=== PATIENT | female | born 1965 | race Caucasian/White ===

== ENCOUNTER 2016-06-12 10:10 | Emergency (ER) | payer OTHER ==
[~2016-06-12] VITALS: Ht 172.7 cm; Wt 79.5 kg
[~2016-06-12 10:10] MED LIST: CALC1TAB3; Iron; PAM10; SYN.112T
[2016-06-12 10:26] VITALS: BP 156/86; PULSE 74; RESP 18; O2SAT 97
--- NOTE | 2016-06-12 10:46 | ED.REPORT ---
HPI-Back Pain 40 and Over Date of Service Jun 12, 2016 ED Provider: Maria Eugenia Patricia MD Pt is a 50 y.o. female who presents to the ED c/o left hip onset 4 days ago. She states it radiates to her left-sided back, neck, and left lower extremity. Associated muscle spasms. 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 She claims that she has taken 600-800 mg doses of ibuprofen without relief. Upon examination pt states she is unable to get in the gurney as lifting her legs causes her pain. Nursing Notes Stated Complaint: HIP AND LEG PAIN Chief Complaint: Extremity Trauma Nursing Notes Reviewed: Yes Allergies: Coded Allergies: Quinolones (Verified Allergy, Intermediate, lips blister, 01/06/09) Uncoded Allergies: SULFA (Allergy, Intermediate, hives, 01/06/09) Scheduled Dexamethasone (Dexamethasone) 4 Mg Tablet 10 MG PO DAILY 10mg daily for 3 days Scheduled PRN Diazepam (Diazepam) 5 Mg Tablet 5 MG PO TID PRN PRN For Spasm oxyCODONE-Acetaminophen 5-325 mg (oxyCODONE-Acetaminophen 5-325 mg) 1 Each Tablet 1-2 TAB PO Q6H PRN PRN For Pain Miscellaneous Medications ([Iron]) Calcium Carbonate/Vitamin D3 (Caltrate 600 W-D Tablet) 1 Tab Tablet Levothyroxine Inactive Drug Do Not Use (Synthroid-Expunged Drug, Do Not Renew!) 112 Mcg Tablet Nortriptyline-Expunged Drug, Do Not Renew! (Nortriptyline-Expunged Drug, Do Not Renew!) 10 Mg Capsule General Time Seen by MD: 10:27 Chief Complaint Other (Hip pain, left) Hx Obtained From: Patient Arrived By: Walk-in Sudden in Onset?: Yes Onset Occurred: 4 days ago Caused by: Spontaneous/no mechanism Location: : Perispinal lumbar: Perispinal sacral Quality: Painful Severity: Current: Moderate Severity: Maximum: Severe Past Medical History Past Medical History Reports: Thyroid disease Past Surgical History Bunion surgery Ambulatory Status Independent Review of Systems Muscle spasms Musculoskeletal: Reports: Back pain, Extremity pain (Left lower extremity), Joint pain (Left hip), Neck pain Complete sys rev & neg: except as marked. Physical Exam Initial Vital Signs Vital Signs (First) Date Time Temp Pulse Resp B/P Pulse Ox O2 Delivery O2 Flow Rate FiO2 06/12/16 10:26 36.5 74 18 156/86 97 Initial VS: Reviewed Head / Eyes: Atraumatic, Normocephalic Extremities: Vascular intact, Neuro intact Skin: Warm, Dry, No cyanosis Psychiatric: Mood/affect normal, Behavior normal, Normal thought content General/Constitutional: Awake, Alert, Well appearing, Well developed, Well hydrated, Well nourished, Not toxic appearing Behavior: Positive: Tearful Appearance / Presentation: Positive: Obese Respiratory / Chest: Atraumatic, Breath sounds NL, No respiratory distress Cardiovascular: Heart rate NL, Regular rhythm, Heart sounds NL, Peripheral circulation NL Abdomen: Atraumatic, No distention Back: No midline vertebral tend Flank / Spine / Paraspinal: Positive: Lumbar paraspinal tend... Muscle Spasm / ROM: Positive: Lumbar area spasm Neurologic: Oriented X3, Speech NL Re-Eval/Medical Decision Source of Hx: Old records Re-Evaluation/Progress : Time of Eval: 11:00 Re-Evaluation/Progress Note: Physical exam performed. Discussed plan for discharge, pt undertsands and agrees with plan. Counseled Regarding: Diagnosis, Lab results, Need for follow-up, When/why to return to ED Discharge & Departure Impression: Primary Impression: Lumbosacral strain Encounter type: initial encounter Qualified Code: S39.012A - Strain of muscle, fascia and tendon of lower back, initial encounter Disposition: Home Discharge Condition All VS Reviewed: Yes Condition: Improved Patient Instructions: Low Back Strain (ED), Lumbar Radiculopathy (ED) Additional Instructions: Thank you for entrusting us with your care today. I will prescribe you 3 days of Decadron, take the first dose today. Do not take ibuprofen during this time. I will also prescribe you Valium and Percocet. Take Valium as directed for muscle spasms. Take 1-2 Percocet as directed for pain. Do not drink, drive, or consume acetaminophen while taking Percocet. I recommend applying ice and heat to the area. Walking and gentle stretching may also provide some relief. Return if you develop incontinence, numbness or tingling in your extremities, or any new or worsening symptoms. I hope you start to feel better soon and have a great first day of work tomorrow ! Referrals: Cecilia Sigala PA-C (PCP) Kylee Attestation Portions of this note were transcribed by Rodri Mcdaniel. I, Dr. Patricia personally performed the history, physical exam and medical decision-making; I reviewed and confirmed the accuracy of the information in the transcribed note. Signed by: Kylee Koo, 06/12/16 and 1104. copies to: Cecilia Sigala PA-C, Shawna L MD Jun 12, 2016 10:46 RODRI MCDANIEL Jun 12, 2016 10:53
[2016-06-12] MEDS ORDERED: OXYC1TAB24 PO (11:29)
[2016-06-12] MEDS ORDERED: DIAZ5TAB3 PO (11:29)
[2016-06-12] MEDS ORDERED: DXM4T PO (11:29)
== END 2016-06-12 11:40 | disposition home or self-care (01) ==
LOC: SED 10:10
DX: S39.012A Strain of muscle, fascia and tendon of lower back, initial encounter (principal); X50.0XXA Overexertion from strenuous movement or load, initial encounter; Y92.000 Kitchen of unspecified non-institutional (private) residence as the place of occurrence of the external cause; Y93.89 Activity, other specified; Y99.0 Civilian activity done for income or pay; E07.9 Disorder of thyroid, unspecified; Z88.1 Allergy status to other antibiotic agents; Z88.2 Allergy status to sulfonamides

== ENCOUNTER 2016-06-17 15:45 | Emergency (ER) | payer OTHER ==
[~2016-06-17] VITALS: Ht 172.7 cm; Wt 180.0 kg
[~2016-06-17 15:45] MED LIST changes: +DIAZ5TAB3 PO; +DXM4T PO; +OXYC1TAB24 PO
[2016-06-17 15:56] VITALS: BP 151/83; PULSE 73; RESP 15; O2SAT 98
--- NOTE | 2016-06-17 16:37 | ED.REPORT ---
HPI-Back Pain 40 and Over Date of Service Jun 17, 2016 ED Provider: History of Present Illness: seen on 06/12/2016. primary care is soraya valerio out of town. pain continues. percocet some help, movement makes it worse. no previous hx. no injury. working, lots of stress. reports has 2 year old grandson. now with upper back pain also, no injury. Nursing Notes Stated Complaint: HIP PAIN Chief Complaint: Back Pain or Injury Nursing Notes Reviewed: Yes Allergies: Coded Allergies: Quinolones (Verified Allergy, Intermediate, lips blister, 01/06/09) Uncoded Allergies: SULFA (Allergy, Intermediate, hives, 01/06/09) Scheduled Dexamethasone (Dexamethasone) 4 Mg Tablet 10 MG PO DAILY 10mg daily for 3 days Scheduled PRN Diazepam (Diazepam) 5 Mg Tablet 5 MG PO TID PRN PRN For Spasm oxyCODONE-Acetaminophen 5-325 mg (oxyCODONE-Acetaminophen 5-325 mg) 1 Each Tablet 1-2 TAB PO Q6H PRN PRN For Pain Miscellaneous Medications ([Iron]) Calcium Carbonate/Vitamin D3 (Caltrate 600 W-D Tablet) 1 Tab Tablet Levothyroxine Inactive Drug Do Not Use (Synthroid-Expunged Drug, Do Not Renew!) 112 Mcg Tablet Nortriptyline-Expunged Drug, Do Not Renew! (Nortriptyline-Expunged Drug, Do Not Renew!) 10 Mg Capsule General Time Seen by MD: 16:37 Chief Complaint Back pain, Thoracic pain Hx Obtained From: Patient Sudden in Onset?: No Symptom Duration: Since onset Caused by: Spontaneous/no mechanism Location: : Generalized Past Medical History Past Medical History seasonal allergies Denies: Asthma, Diabetes mellitus, Hypertension Reports: Thyroid disease Past Surgical History Bunion surgery Smoking History Former Smoker (quit in 2006) Social History Alcohol Use: "Social" Drug Use: Denies drug use Occupation lives with boyfriend work at [email or web address] in [place] 06/17/2016 Ambulatory Status Independent Review of Systems Basic Review of Systems Eyes: Vision NL, No discharge Skin: No bruising, No rash, No itch Psychiatric: Normal thought content Physical Exam Initial Vital Signs Vital Signs (First) Date Time Temp Pulse Resp B/P Pulse Ox O2 Delivery O2 Flow Rate FiO2 06/17/16 15:56 36.2 73 15 151/83 98 Room Air Initial VS: Reviewed, Vital signs normal Head / Eyes: Atraumatic, Normocephalic, PERRL ENT: Mucous membranes moist, Conjunctiva normal, No scleral icterus Neck: Supple, Non-tender, Full range of motion Lymphatic: No lymphadenopathy Extremities: Vascular intact, Neuro intact, No swelling, No tenderness Skin: Warm, Dry, No cyanosis Psychiatric: Mood/affect normal, Behavior normal, Normal thought content General/Constitutional: Awake, Alert, No acute distress, Well appearing, Well developed, Well hydrated, Well nourished, Cooperative, Not toxic appearing Respiratory / Chest: Atraumatic, Breath sounds NL, Breath sounds = bilat, No respiratory distress Cardiovascular: Heart rate NL, Regular rhythm, Heart sounds NL, No gallop Abdomen: Atraumatic, Soft, Non-tender Back: Atraumatic, Inspection NL, Full range of motion Neurologic: Oriented X3, Speech NL, No motor deficits Lower Extremity / Pelvis / MS: Atraumatic, Inspection NL, Full range of motion , No swelling, Non-tender Interpretation & Diagnostics Lab Results Interpretation Lab Results Interpretation: u tox is positive for benzo's, thc, opiates, tca and oxycodone. urine is negative for infection or blood. u preg is negative Re-Eval/Medical Decision Med Decision/Clinical Course 50 year old female presents for refill of pain medication. Seen last week for low back pain, now with upper back pain also. Marck does have primary care, is seen by Soraya Valerio. Exam is reassuring, no sign of kidney stone or cellulitis. Excellent range of motion. Encourage patient to follow with primary care. REfill of pain medication is not provided from the ER. Discharge & Departure Impression: Primary Impression: Low back pain Chronicity: acute Sciatica laterality: sciatica of left side Additional Impression: Thoracic back pain Chronicity: acute Back pain laterality: bilateral Qualified Code: M54.6 - Pain in thoracic spine Disposition: Home Patient Instructions: Low Back Strain (ED), Sciatica (ED) Additional Instructions: The urine does not show any sign of infection. I think the stress that is going on in your life is increasing the pain that you are experiencing. Please schedule with primary care for a follow up next week. In the meantime, start with a prednisone taper 40 mg daily for 3 days then 30 mg daily for 3 days, then 20 mg daily for 3 days, and then 10 mg daily for 3 days. Can use flexeril 10 mg daily to help with muscle relaxation. You had a one time dose of opiates and benzo's from the ER. If you feel you need these medication, they will need to come from primary care. Referrals: Cecilia Valerio PA-C (PCP) EDSupervising Provider for APC: Rambo Francis MD copies to: Cecilia Valerio PA-C, Sue ARNP Jun 17, 2016 16:37
[2016-06-17 18:17] VITALS: BP 157/94; PULSE 59; RESP 16; O2SAT 59
[2016-06-17 18:18] VITALS: BP 157/94; PULSE 59; RESP 16; O2SAT 59
== END 2016-06-17 18:19 | disposition home or self-care (01) ==
LOC: SED 15:45
DX: M54.42 Lumbago with sciatica, left side (principal); M54.6 Pain in thoracic spine; Z87.891 Personal history of nicotine dependence; Z88.8 Allergy status to other drugs, medicaments and biological substances
CPT/HCPCS: 81002; 81025; 96372; 99284; J1885